=== PATIENT | male | born 1965 | race African-American/Black ===

== ENCOUNTER 2019-07-23 16:19 | Emergency (ER) | payer MEDICARE, MEDICAID ==
[~2019-07-23] VITALS: Ht 188 cm; Wt 79.0 kg
[2019-07-23] MEDS ORDERED: KEPP500 PO (16:45)
[2019-07-23] MEDS ORDERED: LAM2 PO (16:45)
[2019-07-23] MEDS ORDERED: ONDA8TAB6 PO (16:45)
[2019-07-23] MEDS ORDERED: CLON1TAB PO (16:45)
[2019-07-23] MEDS ORDERED: PHEN50TA PO (16:45)
[2019-07-23] MEDS ORDERED: S350 PO (16:45)
[2019-07-23] MEDS ORDERED: HYDR-4001 PO (16:45)
[2019-07-23] MEDS ORDERED: DIPHENHYDRAMINE 50MG/ML VIAL IM ONE (18:45)
[2019-07-23] MEDS ORDERED: METHYLPREDNISOLONE SOD SUCC 125 MG/2 ML VIAL IM ONE (18:45)
[2019-07-23 19:12] VITALS: BP 128/85
== END 2019-07-23 19:16 | disposition home or self-care (01) ==
LOC: ER 16:19
DX: S80.862A Insect bite (nonvenomous), left lower leg, initial encounter (principal); S80.861A Insect bite (nonvenomous), right lower leg, initial encounter; S40.862A Insect bite (nonvenomous) of left upper arm, initial encounter; S40.861A Insect bite (nonvenomous) of right upper arm, initial encounter; L50.9 Urticaria, unspecified; W57.XXXA Bitten or stung by nonvenomous insect and other nonvenomous arthropods, initial encounter; Y93.89 Activity, other specified; Y92.89 Other specified places as the place of occurrence of the external cause; Y99.8 Other external cause status; Z98.890 Other specified postprocedural states; Z79.899 Other long term (current) drug therapy
CPT/HCPCS: 96372; 99283; J1200; J2930